=== PATIENT | male | born 1985 | race Caucasian/White ===

== ENCOUNTER 2019-02-28 16:52 | Emergency (ER) | payer MEDICAID ==
--- NOTE | 2019-02-28 17:06 | EDPHY ---
H & P Stated Complaint: Left wrist pain Time Seen by Provider: 02/28/19 17:06 HPI/ROS: HPI CHIEF COMPLAINT: Left wrist pain. HISTORY OF PRESENT ILLNESS: Patient is a 33-year-old male, presents to the emergency room with left distal wrist pain specifically pain and swelling over the distal radius. The patient was skateboarding he fell off his skateboard approximately an hour ago landing on outstretched left hand. He denies any other areas of injury specifically denies elbow pain or forearm pain. His pain is located left wrist. Distal aspect distal radius swelling noted. Neurovascular intact with good distal pulse, good sensation, good cap refill. Past Medical History: Denies medical history take Suboxone. Past Surgical History: Denies surgical history Social History: Occasional tobacco, occasional marijuana. Family History: Noncontributory ROS REVIEW OF SYSTEMS: 10 Systems were reviewed and negative with the exception of the elements mentioned in the history of present illness. Exam Constitutional triage nursing summary reviewed, vital signs reviewed, awake/ alert. Eyes normal conjunctivae and sclera, EOMI, PERRLA. HENT normal inspection, atraumatic, moist mucus membranes, no epistaxis, neck supple/ no meningismus, no raccoon eyes. Respiratory clear to auscultation bilaterally, normal breath sounds, no respiratory distress, no wheezing. Cardiovascular rate normal, regular rhythm, no murmur, no edema, distal pulses normal. Gastrointestinal soft, non-tender, no rebound, no guarding, normal bowel sounds, no distension, no pulsatile mass. Genitourinary no CVA tenderness. Musculoskeletal left wrist: Good distal pulse, good cap refill, good supervisor doping strength, swelling noted over the dorsum of the left wrist specifically over the distal radius. No compartment syndrome. No crepitus. No angulation. Good sensation. no midline vertebral tenderness, full range of motion, no calf swelling, no tenderness of extremities, no meningismus, good pulses, neurovascularly intact. Skin pink, warm, & dry, no rash, skin atraumatic. Neurologic awake, alert and oriented x 3, AAOx3, moves all 4 extremities equally, motor intact, sensory intact, CN II-XII intact, normal cerebellar, normal vision, normal speech. Psychiatric normal mood/affect. Heme/Lymph/Immune no lymphadenopathy. Differential Diagnosis: Includes but is not limited to in a particular order left wrist sprain, left wrist contusion, left wrist fracture, distal radius fracture Medical Decision Making: Plan for this patient x-ray left wrist, ice pack, Tylenol. Re-evaluate Re-evaluation: X-ray of the left wrist reviewed this shows distal radius fracture. This is a closed injury. Patient's left wrist neurovascular intact with good distal pulse, good cap refill normal sensation. No compartment syndrome on exam. Plan for this patient splint sugar-tong. Will need to follow up with Orthopedics. Patient was splinted sugar-tong splint. Recommend he follows up with orthopedic surgery. Recommend ice, anti-inflammatory pain medicine. Return precautions discussed. Patient was placed in sugar tong splint by ER techs, Post splint placement I evaluated this. He is neurovasc intact, good cap refill, good sensation. No compartment syndrome. Splint feels comfortable. Patient understands he must follow up with Ortho for surgical fixation. He understands to call for follow up appointment. Keep elevated/ice/nsaids Return to er if worsening symptoms he understands. Source: Patient - Personal History Current Tetanus/Diphtheria Vaccine: Yes - Medical/Surgical History Hx Asthma: No Hx Chronic Respiratory Disease: No Hx Diabetes: No Hx Cardiac Disease: No Hx Renal Disease: No Hx Cirrhosis: No Hx Alcoholism: No - Social History Smoking Status: Heavy smoker Constitutional: Initial Vital Signs Temperature (C) 36.9 C 02/28/19 16:58 Heart Rate 100 02/28/19 16:58 Respiratory Rate 18 02/28/19 16:58 Blood Pressure 148/76 H 02/28/19 16:58 O2 Sat (%) 97 02/28/19 16:58 O2 Delivery Mode Room Air Allergies/Adverse Reactions: bacitracin [From Neosporin ([id number])] Allergy (Verified 02/28/19 17:01) neomycin [From Neosporin ([id number])] Allergy (Verified 02/28/19 17:01) polymyxin B [From Neosporin ([id number])] Allergy (Verified 02/28/19 17:01) Home Medications: Medication Instructions Recorded Ibuprofen [Motrin (*)] 800 mg PO Q6-8PRN #10 tab 02/28/19 Medical Decision Making - Data Points Medications Given: Discontinued Medications Acetaminophen (Tylenol) 1,000 mg PO EDNOW ONE Stop: 02/28/19 17:20 Last Admin: 02/28/19 17:33 Dose: 1,000 mg Departure - Departure Disposition: Home, Routine, Self-Care Condition: Fair Instructions: Wrist Fracture in Adults (ED) Additional Instructions: 1. Recommend anti-inflammatory pain medicine alternating Tylenol and Motrin every 6-8 hours 2. Wrist splint for comfort. 3. Follow up with Orthopedics. Please call their for follow-up appointment. Referrals: NONE *PRIMARY CARE P,. [Primary Care Provider] - As per Instructions Jimmy Samuel MD [Medical Doctor] - As per Instructions Prescriptions: Ibuprofen [Motrin (*)] 800 mg PO Q6-8PRN #10 tab
[2019-02-28] MEDS ORDERED: ACETAMINOPHEN 500 MG TAB PO ONE (17:19)
[2019-02-28 18:32] VITALS: BP 140/81
== END 2019-02-28 18:37 | disposition home or self-care (01) ==
PROC: 2W3DX1Z Immobilization of Left Lower Arm using Splint (ICD-10-PCS; principal; 2019-02-28)
DX: S52.592A Other fractures of lower end of left radius, initial encounter for closed fracture (principal); V00.131A Fall from skateboard, initial encounter; Y93.51 Activity, roller skating (inline) and skateboarding
CPT/HCPCS: A4565